=== PATIENT | male | born 1980 | race Asian ===

== ENCOUNTER → 2016-09-14 15:42 | Outpatient (CLI) | payer OTHER | END | disposition short-term general hospital (02) | LOC: AMB 15:42 | DX: S01.81XA Laceration without foreign body of other part of head, initial encounter (principal); M25.512 Pain in left shoulder; S61.205A Unspecified open wound of left ring finger without damage to nail, initial encounter; S01.432A Puncture wound without foreign body of left cheek and temporomandibular area, initial encounter; R10.813 Right lower quadrant abdominal tenderness; V49.88XA Car occupant (driver) (passenger) injured in other specified transport accidents, initial encounter; Y92.488 Other paved roadways as the place of occurrence of the external cause | CPT/HCPCS: A0429 ==